=== PATIENT | male | born 1980 | race Caucasian/White ===

== ENCOUNTER 2018-01-16 07:56 | Day surgery (SDC) | payer OTHER | END 2018-01-16 17:20 | disposition home or self-care (01) | LOC: CIR.AMB 07:56 | DX: K64.2 Third degree hemorrhoids (principal) ==

== ENCOUNTER 2018-10-14 06:43 | Outpatient (CLI) | payer OTHER | END 2018-10-14 06:50 | disposition home or self-care (01) | LOC: LAB 06:43 | DX: D50.0 Iron deficiency anemia secondary to blood loss (chronic) (principal); K64.8 Other hemorrhoids; G43.101 Migraine with aura, not intractable, with status migrainosus; D50.8 Other iron deficiency anemias; D51.8 Other vitamin B12 deficiency anemias; D51.1 Vitamin B12 deficiency anemia due to selective vitamin B12 malabsorption with proteinuria; I10 Essential (primary) hypertension; E03.8 Other specified hypothyroidism; E06.3 Autoimmune thyroiditis; R19.5 Other fecal abnormalities; F32.89 Other specified depressive episodes ==

== ENCOUNTER 2018-10-14 07:23 | Outpatient (CLI) | payer OTHER | END 2018-10-14 07:28 | disposition home or self-care (01) | LOC: SONOGRAMA 07:23 | DX: D50.0 Iron deficiency anemia secondary to blood loss (chronic) (principal); F33.8 Other recurrent depressive disorders; K64.8 Other hemorrhoids; G43.101 Migraine with aura, not intractable, with status migrainosus; E03.8 Other specified hypothyroidism; E06.3 Autoimmune thyroiditis; E04.8 Other specified nontoxic goiter ==